=== PATIENT | female | born 1965 ===

== ENCOUNTER 2017-10-04 14:24 | Emergency (ER) | payer MEDICAID ==
[2017-10-04 14:25] VITALS: BMI 19.7
--- NOTE | 2017-10-04 15:07 | C.PDOC ---
History Of Present Illness hx fibromyalgia migraine asthamc/o fever to100.2, headache. nausea abdominal pain epigastric cough x 5 days, no diarrhea. HPI: Influenza Time Seen by Provider: 10/04/17 14:40 Chief Complaint: Flu-like Symptoms Past Medical History Vital Signs: Last Vital Signs Temp 98 F 10/04/17 14:32 Pulse 85 10/04/17 14:32 Resp 16 10/04/17 14:32 BP 130/87 10/04/17 14:32 Pulse Ox 98 10/04/17 14:32 - Medical History PMH: Anemia, Anxiety, Arthritis, Asthma, Depression, Fibromyalgia, Hypercholesterolemia, Hypothyroidism (NO MEDS), Migraine, Mitral Valve Prolapse Surgical History: Endoscopy - [facility] Procedures DX ULTRASOUND-HEART (12/27/13) PHYSICAL THERAPY NEC (06/10/13) Family History: States: Unknown Family Hx - Social History Hx Tobacco Use: No Hx Alcohol Use: No Hx Substance Use: No - Immunization History Hx Tetanus Toxoid Vaccination: No Hx Influenza Vaccination: Yes Hx Pneumococcal Vaccination: No Medical Decision Making Medical Decision Making: pt resting comfortably, tolerats po fluids. labs wnl. abdomen with momimal tenderness. will d/c home with pmd f/u - Laboratory Results Result Diagrams: 10/04/17 16:03 10/04/17 16:03 - ECG O2 Sat by Pulse Oximetry: 98 Disposition Counseled Patient/Family Regarding: Studies Performed, Diagnosis, Need For Followup - Disposition Referrals: Donovan Tobias MD [Staff Provider] - Disposition: HOME/ ROUTINE Disposition Time: 18:27 Condition: IMPROVED Additional Instructions: Please follow up with Dr Tobias in next 1-2 days. Take all regular medications as prescribed. Take ibuprofen for pain if needed. Return to Ed for any worse symptoms. Instructions: Viral Syndrome (DC) Forms: [employer] ([place]), General Discharge Instructions - Clinical Impression Clinical Impression: Viral syndrome
[2017-10-04] MEDS ORDERED: Sodium Chloride 0.9% 1,000 ML IV ONE (15:40)
[2017-10-04] MEDS ORDERED: Sodium Chloride 0.9% 1,000 ML ONE (15:49)
[2017-10-04 16:07] LABS: BASO # 0.1 K/uL (0.0-0.2); BASO % 0.6 % (0.0-2.0); EOS # 0.1 K/uL (0.0-0.7); EOS % 0.9 % (0.0-4.0); LYMPH # 2.6 K/uL (1.0-4.3); MEAN CORPUSCULAR HEMOGLOBIN 31.2 pg (27.0-31.0); MEAN CORPUSCULAR HGB CONC 34.1 g/dL (33.0-37.0); MEAN PLATELET VOLUME 8.9 fL (7.2-11.7); MONO # 0.6 K/uL (0.0-0.8); MONO % 7.5 % (0.0-10.0); NEUT # 5.1 K/uL (1.8-7.0); NRBC % 0.1 % (0.0-2.0); RBC 4.97 Mil/uL (3.80-5.20); RED CELL DISTRIBUTION WIDTH 12.6 % (11.5-14.5)
[2017-10-04 16:17] LABS: ALB/GLOB RATIO 1.2 (1.0-2.1); ALBUMIN 5.1 g/dL (3.5-5.0); ALT/SGPT 45 U/L (9-52); AST/SGOT 36 U/L (14-36); BLOOD UREA NITROGEN 10 mg/dL (7-17); CALCIUM 10.3 mg/dl (8.6-10.4); GFR AFRICAN-AMERICAN > 60; GFR NON-AFRICAN AMERICAN > 60; LIPASE 102 U/L (23-300)
[2017-10-04 16:20] LABS: HEMOGLOBIN 15.5 g/dL (11.0-16.0); MEAN CELL VOLUME 91.6 fL (81.0-99.0); WHITE BLOOD COUNT 8.5 K/uL (4.8-10.8)
[2017-10-04 16:25] LABS: SQUAMOUS EPITHIAL 5 /hpf (0-5); URINE BILIRUBIN NEGATIVE (NEGATIVE); URINE BLOOD NEGATIVE (NEGATIVE); URINE CLARITY Clear (Clear); URINE COLOR Straw (YELLOW); URINE GLUCOSE (UA) NORMAL (Normal); URINE LEUKOCYTE ESTERASE NEG Leu/uL (Negative); URINE PROTEIN NEGATIVE (NEGATIVE); URINE UROBILINOGEN NORMAL mg/dL (0.2-1.0)
[2017-10-04 16:47] VITALS: RESP 18; TEMP 97.7
[2017-10-04 18:15] VITALS: BP 121/80; PULSE 84
[2017-10-04 18:29] VITALS: O2SAT 98
== END 2017-10-04 18:40 | disposition home or self-care (01) ==
LOC: C.ER 14:24
DX: B34.9 Viral infection, unspecified (principal); D64.9 Anemia, unspecified; E78.00 Pure hypercholesterolemia, unspecified
CPT/HCPCS: 80053; 81001; 83690; 85025; 96361; 96374; 96375; 99284; J1885; J2405; J7040

== ENCOUNTER 2017-10-09 19:27 | Emergency (ER) | payer MEDICAID ==
[2017-10-09 19:27] VITALS: BMI 19.7
[2017-10-09] MEDS ORDERED: DiphenhydrAMINE 50 mg/ml Inj IVP STA (20:25)
[2017-10-09] MEDS ORDERED: Sodium Chloride 0.9% 1,000 ML IV ONE (20:25)
--- NOTE | 2017-10-09 20:25 | C.PDOC ---
History Of Present Illness 52 y/o female presents to ED with complaints of abdominal pain associate with nausea and vomiting that began few weeks ago. Patient states the pain has worsened. Patient also states she recently had a endoscopy which was negative. Denies any other physical complaints. Time Seen by Provider: 10/09/17 20:22 Chief Complaint (Nursing): Abdominal Pain History Per: Patient History/Exam Limitations: no limitations Onset/Duration Of Symptoms: Days Current Symptoms Are (Timing): Still Present Radiation Of Pain To:: None Quality Of Discomfort: "Pain" Associated Symptoms: Nausea, Vomiting. denies: Fever, Chills, Diarrhea, Chest Pain, Urinary Symptoms Alleviating Factors: None Recent travel outside of the [place]: No Abnormal Vaginal Bleeding: No Past Medical History Reviewed: Historical Data, Nursing Documentation, Vital Signs Vital Signs: Last Vital Signs Temp 97.5 F L 10/09/17 21:41 Pulse 78 10/09/17 21:41 Resp 18 10/09/17 21:41 BP 102/62 10/09/17 21:41 Pulse Ox 97 10/09/17 21:41 - Medical History PMH: Anemia, Anxiety, Arthritis, Asthma, Depression, Fibromyalgia, Hypercholesterolemia, Hypothyroidism (NO MEDS), Migraine, Mitral Valve Prolapse Surgical History: Endoscopy - [facility] Procedures DX ULTRASOUND-HEART (12/27/13) PHYSICAL THERAPY NEC (06/10/13) Family History: States: Unknown Family Hx - Social History Hx Tobacco Use: No Hx Alcohol Use: No Hx Substance Use: No - Immunization History Hx Tetanus Toxoid Vaccination: No Hx Influenza Vaccination: Yes Hx Pneumococcal Vaccination: No Review Of Systems Constitutional: Negative for: Fever, Chills Cardiovascular: Negative for: Chest Pain Respiratory: Negative for: Cough Gastrointestinal: Positive for: Nausea, Vomiting, Abdominal Pain. Negative for : Diarrhea Neurological: Negative for: Weakness, Numbness Physical Exam - Physical Exam Appears: Well, Non-toxic Skin: Normal Color, Warm, Dry Head: Atraumatic, Normacephalic Eye(s): bilateral: Normal Inspection Oral Mucosa: Moist Neck: Supple Chest: Symmetrical, No Tenderness Cardiovascular: Rhythm Regular Respiratory: Normal Breath Sounds, No Decreased Breath Sounds, No Rales, No Rhonchi, No Wheezing Gastrointestinal/Abdominal: Soft, Tenderness (Epigastric ), No Distention, No Guarding, No Rebound Neurological/Psych: Oriented x3, Normal Speech, Normal Cognition ED Course And Treatment - Laboratory Results Result Diagrams: 10/09/17 20:42 10/09/17 20:42 O2 Sat by Pulse Oximetry: 98 (RA) Pulse Ox Interpretation: Normal Medical Decision Making Medical Decision Making: suspet gastirits vs gerd vs pud. no lower abd pain - beside us shows contracted gallballder, no visualzied e/alok cholecystitis- (pt reports ate just block captain) Ordered blood work and urinalysis. Administered Reglan, IV fluids, Benadryl, and Protonix. - Spoke with Dr. Tobias. - Patient's pain is improving. - Dr. Tobias agrees with outpatient follow up. Disposition - Disposition Disposition: HOME/ ROUTINE Disposition Time: 11:00 Condition: GOOD Additional Instructions: follow up with dr tobias. return to er with any worsening symptoms or concerns. please see your gi doctor. Prescriptions: Famotidine [Pepcid] 20 mg PO DAILY #20 tab Instructions: Acute Abdomen (Belly Pain) Forms: [employer] (French) - Clinical Impression Clinical Impression: Abdominal pain - Scribe Statement The provider has reviewed the documentation as recorded by the Scribe Jaswinder Capps All medical record entries made by the Scribe were at my direction and personally dictated by me. I have reviewed the chart and agree that the record accurately reflects my personal performance of the history, physical exam, medical decision making, and the department course for this patient. I have also personally directed, reviewed, and agree with the discharge instructions and disposition.
[2017-10-09 20:48] LABS: BASO % 0.6 % (0.0-2.0); EOS # 0.1 K/uL (0.0-0.7); HEMOGLOBIN 14.3 g/dL (11.0-16.0); LYMPH # 1.8 K/uL (1.0-4.3); LYMPH % 27.9 % (20.0-40.0); MEAN CELL VOLUME 91.3 fL (81.0-99.0); MEAN CORPUSCULAR HEMOGLOBIN 31.1 pg (27.0-31.0); MEAN CORPUSCULAR HGB CONC 34.1 g/dL (33.0-37.0); MEAN PLATELET VOLUME 8.8 fL (7.2-11.7); MONO # 0.5 K/uL (0.0-0.8); MONO % 8.5 % (0.0-10.0); NEUT # 3.9 K/uL (1.8-7.0); RBC 4.6 Mil/uL (3.80-5.20); RED CELL DISTRIBUTION WIDTH 12.5 % (11.5-14.5); WHITE BLOOD COUNT 6.4 K/uL (4.8-10.8)
[2017-10-09 20:51] LABS: HCG,QUALITATIVE URINE NEGATIVE (NEGATIVE)
[2017-10-09 20:56] LABS: INR 1.1; PROTHROMBIN TIME 11.8 SECONDS (9.7-12.2)
[2017-10-09] MEDS ORDERED: Sodium Chloride 0.9% 1,000 ML ONE (20:57)
[2017-10-09 20:58] LABS: SQUAMOUS EPITHIAL 2 /hpf (0-5); URINE AMORPHOUS SEDIMENT RARE /ul (<OCC); URINE BACTERIA RARE (<OCC); URINE BILIRUBIN NEGATIVE (NEGATIVE); URINE CLARITY Hazy (Clear); URINE COLOR Yellow (YELLOW); URINE GLUCOSE (UA) NORMAL (Normal); URINE LEUKOCYTE ESTERASE NEG Leu/uL (Negative); URINE PROTEIN NEGATIVE (NEGATIVE)
[2017-10-09 20:59] LABS: URINE BLOOD NEGATIVE (NEGATIVE)
[2017-10-09] MEDS ORDERED: DiphenhydrAMINE 50 mg/ml Inj ONE (21:00)
[2017-10-09 21:02] LABS: ALB/GLOB RATIO 1.3 (1.0-2.1); ALBUMIN 4.7 g/dL (3.5-5.0); ALT/SGPT 25 U/L (9-52); AST/SGOT 26 U/L (14-36); BLOOD UREA NITROGEN 13 mg/dL (7-17); CALCIUM 9.6 mg/dl (8.6-10.4); GFR AFRICAN-AMERICAN > 60; GFR NON-AFRICAN AMERICAN > 60; LIPASE 91 U/L (23-300)
[2017-10-09 21:42] VITALS: BP 102/62; PULSE 78; RESP 18; TEMP 97.5
[2017-10-09 23:46] VITALS: O2SAT 98
== END 2017-10-09 21:44 | disposition home or self-care (01) ==
LOC: C.ER 19:27
DX: R10.9 Unspecified abdominal pain (principal); E78.00 Pure hypercholesterolemia, unspecified; E03.9 Hypothyroidism, unspecified; M79.7 Fibromyalgia
CPT/HCPCS: 80053; 81001; 83690; 84703; 85025; 85610; 85730; 96361; 96374; 96375; 99285; C9113; J1200; J2765; J7040

== ENCOUNTER 2018-08-04 19:34 | Emergency (ER) | payer MEDICARE, MEDICAID ==
[2018-08-04 19:34] VITALS: BMI 19.7
[2018-08-04 19:50] VITALS: BP 128/81; PULSE 78; RESP 16; TEMP 97.5; O2SAT 97
--- NOTE | 2018-08-04 20:02 | C.PDOC ---
History Of Present Illness 53 year old female presents to the ER with a complaint of worsening redness to the left 3rd toe for the past 5 days after an insect bite the top of her left 3rd toe. Patient states the toe is itchy, she has been applying alcohol, peroxide, iodine, and bacitracin to the area now with increasing pain and redness. Denies discharge. WORSENING REDNESS L 3 TOE X 5 DAYS. ONSET AFTER INSECT BITE TOP OF L 3 TOE. PS ITCHY, HAS BEEN APPLYING ETOH, H2O2, IODINE, BACITRACIN TO AREA NOW W INCR PAIN AND REDNESS. NO DC EXAM NAD EXT L 3 TOE NAIL WNL; NO DEFORM, SWELL SKIN +SKIN ERYTHEMA W VESICLES, CONTACT DERMATITIS VS CELLULITIS TO BASE OF L 3 TOE; FOOT WNL Time Seen by Provider: 08/04/18 19:54 Chief Complaint (Nursing): Bite History Per: Patient History/Exam Limitations: no limitations Onset/Duration Of Symptoms: Days (5) Location Of Injury: Left: Foot (3rd toe) Quality Of Symptoms: Itching, Other (Erythema) Recent travel outside of the [place]: No Past Medical History Reviewed: Historical Data, Nursing Documentation, Vital Signs Vital Signs: Last Vital Signs Temp 97.5 F L 08/04/18 19:46 Pulse 78 08/04/18 19:46 Resp 16 08/04/18 19:46 BP 128/81 08/04/18 19:46 Pulse Ox 97 08/04/18 19:46 - Medical History PMH: Anemia, Anxiety, Arthritis, Asthma, Depression, Fibromyalgia, Hypercholesterolemia, Hypothyroidism (NO MEDS), Migraine, Mitral Valve Prolapse Surgical History: Endoscopy - [facility] Procedures DX ULTRASOUND-HEART (12/27/13) PHYSICAL THERAPY NEC (06/10/13) Family History: States: Unknown Family Hx - Social History Hx Tobacco Use: No Hx Alcohol Use: No Hx Substance Use: No - Immunization History Hx Tetanus Toxoid Vaccination: No Hx Influenza Vaccination: Yes Hx Pneumococcal Vaccination: No Review Of Systems Constitutional: Negative for: Fever, Chills Skin: Positive for: Other (Left 3rd toe erythema and itchiness) Neurological: Negative for: Weakness, Numbness Physical Exam - Physical Exam Appears: Non-toxic Skin: Warm, Dry, Other (+SKIN ERYTHEMA W VESICLES, CONTACT DERMATITIS VS CELLULITIS TO BASE OF L 3 TOE; FOOT WNL) Extremity: Capillary Refill (<2 seconds), Other (L 3 TOE NAIL WNL; NO DEFORM, SWELL) Pulses: Left Dorsalis Pedis: Normal, Right Dorsalis Pedis: Normal Neurological/Psych: Oriented x3, Normal Speech, Normal Motor, Normal Sensation Gait: Steady ED Course And Treatment O2 Sat by Pulse Oximetry: 97 (Room air) Pulse Ox Interpretation: Normal Medical Decision Making Medical Decision Making: Patient given Rx, proper wound care instructions, and advised to follow up with PMD. Disposition Counseled Patient/Family Regarding: Diagnosis, Need For Followup, Rx Given - Disposition Referrals: YOUR,PMD [Other] Disposition: HOME/ ROUTINE Disposition Time: 20:03 Condition: IMPROVED Additional Instructions: AVOID ALCOHOL, PEROXIDE OR OTHER IRRITATING CHEMICALS TO AREA.ALOE, TOPICAL STEROID, COOL COMPRESS/BATH Prescriptions: Cephalexin [cephalexin] 500 mg PO Q6 #28 cap DiphenhydrAMINE [Benadryl] 50 mg PO TID PRN #30 cap PRN Reason: Itching / Pruritus Hydrocortisone 1% Oint [Cortizone 1% Oint] 1 mg TP BID #1 tube Ibuprofen [Motrin] 600 mg PO Q6 #30 tab Instructions: Cellulitis (Skin Infection), Adult (DC) Forms: [facility] (Bulgarian), Work Excuse - Clinical Impression Clinical Impression: Cellulitis, toe, Chemical dermatitis - Scribe Statement The provider has reviewed the documentation as recorded by the Scriblos Brizuela All medical record entries made by the Scribe were at my direction and personally dictated by me. I have reviewed the chart and agree that the record accurately reflects my personal performance of the history, physical exam, medical decision making, and the department course for this patient. I have also personally directed, reviewed, and agree with the discharge instructions and disposition.
[2018-08-04] MEDS ORDERED: PrednisoLONE 6 MG/2 ML SYR ONE (20:12)
== END 2018-08-04 20:21 | disposition home or self-care (01) ==
LOC: C.ER 19:34
DX: L03.032 Cellulitis of left toe (principal); L25.3 Unspecified contact dermatitis due to other chemical products